=== PATIENT | female | born 1970 ===

== ENCOUNTER 2017-03-09 09:39 | Emergency (ER) | payer OTHER ==
[2017-03-09 09:49] VITALS: BP 122/67; PULSE 95; TEMP 98.2
[2017-03-09 10:17] VITALS: RESP 19; O2SAT 100
--- NOTE | 2017-03-09 10:27 | ED PDOC ---
HPI: Eye Injury/Pain Time Seen by Provider: 03/09/17 10:12 Chief Complaint (Nursing): Eye Problem Chief Complaint (Provider): Sty right lower eyelid x 1 week, using OTC medications without relief History Per: Patient History/Exam Limitations: no limitations Onset/Duration Of Symptoms: Days Current Symptoms Are (Timing): Still Present Quality: Dull Wears Contact Lens?: No Associated Symptoms: Pain (Lower eyelid, no eyeball pain ). denies: FB Sensation, Itching, Discharge From Eye Past Medical History Reviewed: Historical Data, Nursing Documentation, Vital Signs Vital Signs: Last Vital Signs Temp 98.2 F 03/09/17 09:55 Pulse 95 H 03/09/17 09:55 Resp 19 03/09/17 09:55 BP 122/67 03/09/17 09:55 Pulse Ox 100 03/09/17 09:55 - Medical History PMH: Back Problems - Surgical History Surgical History: Appendectomy, Cholecystectomy - Family History Family History: States: No Known Family Hx - Living Arrangements Living Arrangements: With Family - Social History Current smoker - smoking cessation education provided: No Alcohol: None Drugs: Denies - Home Medications Home Medications: Ambulatory Orders Medication Instructions Recorded Metaxalone [Skelaxin] 800 mg PO TID PRN #15 tablet 06/12/16 Naproxen [Naprosyn] 500 mg PO BID #20 tab 06/12/16 traMADol [Ultram] 50 mg PO TID PRN #15 tab 06/12/16 Cephalexin [Keflex] 500 mg PO BID #20 capsule 03/09/17 Polymyxin/Trimethoprim Sulfate 1 drop XX Q6H 10 Days 03/09/17 [Polytrim Ophth Soln] - Allergies Allergies/Adverse Reactions: Allergies Allergy/AdvReac Type Severity Reaction Status Date / Time No Known Allergies Allergy Verified 06/12/16 10:49 Review of Systems ROS Statement: Except As Marked, All Systems Reviewed And Found Negative Skin: Positive for: Other Physical Exam - Reviewed Nursing Documentation Reviewed: Yes Vital Signs Reviewed: Yes - Physical Exam Appears: Positive for: Well, Non-toxic, No Acute Distress Head Exam: Positive for: ATRAUMATIC, NORMAL INSPECTION, NORMOCEPHALIC Skin: Positive for: Normal Color, Warm, DRY Eye Exam: Positive for: EOMI, PERRL, Other ((+) sty lower right eyelid ). Negative for: Normal appearance ENT: Positive for: Normal ENT Inspection Neck: Positive for: Normal, Painless ROM Respiratory: Negative for: Accessory Muscle Use, Respiratory Distress Back: Positive for: Normal Inspection Extremity: Positive for: Normal ROM Neurologic/Psych: Positive for: Alert, Oriented - ECG O2 Sat by Pulse Oximetry: 100 Medical Decision Making Medical Decision Making: Discussed warm compresses. Disposition - Clinical Impression Clinical Impression: Sty - Patient ED Disposition Is Patient to be Admitted: No Counseled Patient/Family Regarding: Diagnosis, Need For Followup, Rx Given - Disposition Referrals: [facility] [Outside] Disposition: Routine/Home Disposition Time: 10:28 Condition: GOOD Prescriptions: Cephalexin [Keflex] 500 mg PO BID #20 capsule Polymyxin/Trimethoprim Sulfate [Polytrim Ophth Soln] 1 drop XX Q6H 10 Days Instructions: Karen (ED) Print Language: KOREAN
== END 2017-03-09 10:52 | disposition home or self-care (01) ==
LOC: H.ER 09:39
DX: H00.012 Hordeolum externum right lower eyelid (principal)

== ENCOUNTER 2018-08-19 23:11 | Emergency (ER) | payer OTHER ==
[2018-08-19 23:23] VITALS: RESP 18
--- NOTE | 2018-08-19 23:42 | ED PDOC ---
HPI: Wound Care - HPI Time Seen by Provider: 08/19/18 23:24 Chief Complaint (Nursing): Abnormal Skin Integrity Chief Complaint (Provider): left leg laceration History Per: Patient History Of Present Illness: 48 y/o female presents for evaluation of laceration to left leg sustained prior to arrival. Patient states she cut leg on piece of metal that was sticking out by the boiler in the basement. Denies numbness/weakness left lower extremity, limitation of movement. Last Tetanus unknown Past Medical History Reviewed: Historical Data, Nursing Documentation, Vital Signs Vital Signs: Last Vital Signs Temp 97.9 F 08/19/18 23:19 Pulse 114 H 08/19/18 23:19 Resp 18 08/19/18 23:19 BP 127/84 08/19/18 23:19 Pulse Ox 98 08/19/18 23:19 - Medical History PMH: Back Problems, Diabetes - Surgical History Surgical History: Appendectomy, Cholecystectomy - Family History Family History: States: No Known Family Hx - Home Medications Home Medications: Ambulatory Orders Medication Instructions Recorded Metaxalone [Skelaxin] 800 mg PO TID PRN #15 tablet 06/12/16 Naproxen [Naprosyn] 500 mg PO BID #20 tab 06/12/16 traMADol [Ultram] 50 mg PO TID PRN #15 tab 06/12/16 Cephalexin [Keflex] 500 mg PO BID #20 capsule 03/09/17 Polymyxin/Trimethoprim Sulfate 1 drop XX Q6H 10 Days bottle 03/09/17 [Polytrim Ophth Soln] Cephalexin [Keflex] 500 mg PO Q6 #27 capsule 08/20/18 Naproxen [Naprosyn] 500 mg PO Q12 PRN #14 tablet 08/20/18 - Allergies Allergies/Adverse Reactions: Allergies Allergy/AdvReac Type Severity Reaction Status Date / Time No Known Allergies Allergy Verified 08/19/18 23:19 Review of Systems ROS Statement: Except As Marked, All Systems Reviewed And Found Negative Musculoskeletal: Positive for: Leg Pain (left leg laceration) Physical Exam - Reviewed Nursing Documentation Reviewed: Yes Vital Signs Reviewed: Yes - Physical Exam Appears: Positive for: Well, Non-toxic, No Acute Distress Extremity: Positive for: Normal ROM, Other (5cm linear laceration distal anterior/medial left thigh. No active bleeding. FROM LLE.) Neurologic/Psych: Positive for: Alert, Oriented (x3). Negative for: Motor/Sensory Deficits - ECG O2 Sat by Pulse Oximetry: 98 Procedure: Wound Repair - Location Shape:: Linear Dimensions Length cm: 5cm Dimensions width cm: 1cm Depth:: Subcutaneous fascia - Anesthetic Technique Anesthetic Technique: Topical Local/Regional Anesthetic:: Lidocaine 1% w/epi - Debris Debris:: None - Complexity Complexity:: Intermediate (2 layer) - Wound repair method Sutures:: # (internal: 3, external: 8), Size (internal: 5'0 external: 4'0), Type (internal: chromic, external: prolene), Technique (interrupted) - Muscle repiar layer closed with Muscle repair layer closed with:: Abx ointment applied, Dressing applied, Tetanus ordered - Patient tolerated procedure Patient Tolerated Procedure:: Well Medical Decision Making Medical Decision Making: Patient educated on wound care, advised suture removal 8-10 days Rx Keflex, Naproxen provided Return precautions given Disposition - Clinical Impression Clinical Impression: Laceration of left leg - Patient ED Disposition Is Patient to be Admitted: No Counseled Patient/Family Regarding: Diagnosis, Need For Followup, Rx Given - Disposition Disposition: Routine/Home Disposition Time: 01:30 Condition: IMPROVED Additional Instructions: Suture removal in 8-10 days Prescriptions: Cephalexin [Keflex] 500 mg PO Q6 #27 capsule Naproxen [Naprosyn] 500 mg PO Q12 PRN #14 tablet PRN Reason: Pain, Moderate (4-7) Instructions: Laceration Repair Forms: [employer] ([place]ish) Print Language: [place]
[2018-08-20] MEDS ORDERED: Tdap Vaccine 0.5 ml Vial (10-64 yrs) IM ONE (00:24)
[2018-08-20] MEDS: Tdap Vaccine 0.5 ml Vial (10-64 yrs) IM ONE (00:39)
[2018-08-20] MEDS: Naproxen 500 MG TAB PO ONE (02:15)
[2018-08-20] MEDS ORDERED: Naproxen 500 MG TAB PO ONE (02:16)
[2018-08-20 03:15] VITALS: BP 134/86; PULSE 91; TEMP 98.3; O2SAT 99
== END 2018-08-20 02:25 | disposition home or self-care (01) ==
LOC: H.ER 23:11
DX: S81.812A Laceration without foreign body, left lower leg, initial encounter (principal); W26.8XXA Contact with other sharp object(s), not elsewhere classified, initial encounter; Y92.89 Other specified places as the place of occurrence of the external cause; E11.9 Type 2 diabetes mellitus without complications